=== PATIENT | female | born 2000 | race Caucasian/White ===

== ENCOUNTER 2022-01-08 17:58 | Emergency (ER) | payer MEDICAID, SELFPAY ==
[2022-01-08 18:01] VITALS: BP 109/61; PULSE 75; RESP 20; TEMP 36.5; O2SAT 100
== END 2022-01-08 18:16 | disposition left against medical advice (07) ==
LOC: ANHED 18:34
DX: R22.1 Localized swelling, mass and lump, neck (principal)
CPT/HCPCS: 99199

== ENCOUNTER 2022-05-24 19:48 | Outpatient (RCR) | payer MEDICAID, SELFPAY ==
--- NOTE | 2022-05-24 20:36 | PM.IMHP ---
H&P: HPI History of Present Illness Date/Time: 05/24/22 20:36 Chief Complaint: No movement. Narrative: 22-year-old 1 at 30 weeks gestation presents for no movement for approximately 11 hours. She denies any contractions, loss of fluid, vaginal bleeding. She denies any nausea, vomiting, fever, chills. Ultrasound was performed in Labor and delivery after heart tones could not be appreciated. There was no cardiac activity. The patient was informed of the stillbirth. We discussed options. Review of Systems Review of Systems: All systems reviewed & are unremarkable except as noted in HPI and below Constitutional: Constitutional: Denies chills, Denies fatigue, Denies fever(s) and Denies weakness Eyes: Eyes: Denies blurry vision, Denies change in vision, Denies loss of peripheral vision, Denies loss of vision, Denies other visual disturbances and Denies eye pain ENT: Denies vertigo, Denies dizziness, Denies hearing loss, Denies mouth pain, Denies nasal obstruction, Denies neck mass and Denies neck pain Cardiovascular: Cardiovascular: Denies chest pain, Denies diaphoresis, Denies syncope, Denies leg edema and Denies dyspnea Respiratory: Respiratory: Denies chest congestion, Denies cough, Denies hemoptysis, Denies dyspnea and Denies wheezing Gastrointestinal: Gastrointestinal: Denies abdominal pain, Denies constipation, Denies diarrhea, Denies nausea and Denies vomiting Genitourinary: Genitourinary: Denies hematuria, Denies change in libido, Denies nocturia, Denies genital lesions, Denies flank pain and Denies urinary urgency Musculoskeletal: Musculoskeletal: Denies abnormal gait, Denies back pain, Denies myalgias, Denies arthralgias, Denies joint swelling, Denies muscle weakness and Denies neck pain Integumentary/Breasts: Skin/Breast: Denies swelling, Denies breast pain, Denies breast mass, Denies dry skin, Denies nipple discharge, Denies unusual bruising and Denies jaundice Neurologic: Denies Neuro-related abnormal movements, Denies Abnormal speech present, Denies abnormal gait, Denies behavioral changes, Denies confusion, Denies vertigo, Denies dizziness, Denies syncope, Denies loss of vision, Denies memory loss, Denies convulsions and Denies weakness Psychiatric: Psychiatric: Denies abnormal sleep pattern, Denies behavioral changes, Denies change in libido, Denies confusion, Denies depression, Denies anhedonia and Denies memory loss Endocrine: Endocrine: Reports no additional endocrine complaints, Denies change in libido and Denies fatigue Hematologic/Lymphatic: Hematologic/Lymphatic: Reports no additional hematologic/lymphatic complaints Allergic/Immunologic: Allergic/Immunologic: Reports no additional allergic/immunologic complaints and Denies wheezing Meds Home Medications and Allergies Allergies Allergy/AdvReac Type Severity Reaction Status Date / Time No Known Allergies Allergy Unverified 09/29/16 04:34 Exam Const: General: cooperative, healthy appearing, comfortable and no acute distress; No confusion Orientation/consciousness: oriented to person, oriented to place, oriented to time and No confusion HENMT: Head: normal to inspection Ears: external ears normal Face/Nose/Sinus: Normal external nose present and normal facial exam Face and sinus: normal facial exam Eyes: General: appearance normal, both eyes and all related structures Neck: Neck: normal visual inspection, trachea midline and supple Resp: Auscultation: clear to auscultation bilaterally, no crackles, no rales, no rhonchi and no wheezes Cardio: Rate: regular rate Rhythm: regular rhythm Heart sounds: no click, no murmurs and no rubs GI: GI Palp: No abdominal tenderness, No Soft to palpation, No Tenderness to palpation present (GI) and No Palpable mass present Auscultation: normal bowel sounds Skin: General skin exam: normal color and no rashes or lesions noted Neuro: General: oriented to person, oriented to place, o
--- NOTE | 2022-05-24 22:18 | PC.NURSE ---
PT HAS DECIDED THAT SHE WOULD LIKE TO GO HOME TO PROCESS AND COLLECT HER THINGS BEFORE SHE COMES BACK FOR HER INDUCTION. PT TEARFUL.
== END 2022-05-24 21:00 | disposition home or self-care (01) ==
LOC: ANHOBOP 19:48
PROVIDERS: Visit Provider Obstetrics & Gynecology
DX: O36.8130 Decreased fetal movements, third trimester, not applicable or unspecified (principal); Z3A.30 30 weeks gestation of pregnancy
CPT/HCPCS: 99199

== ENCOUNTER 2022-05-25 09:33 | Inpatient (IN) | payer OTHER, SELFPAY ==
--- OUTSIDE RECORDS SUMMARY | 2022-05-25 09:40 | XMS_ITS ---
:2000 Author Care Team Providers Name Role Phone NEO BURK ANP Primary Care Provider [phone] Allergies Code Code System Name Reaction Severity Status Onset NKDA ? Medications Name Status Start Date Stop Date ? ? amoxicillin 500 mg capsule Completed ? 05/04 TK 1 C PO Q 12 H TAT azithromycin 500 mg tablet Completed ? 02/10 TAKE 2 TABLETS BY MOUTH EVERY DAY ergocalciferol (vitamin D2) 1,250 mcg (50,000 unit) capsule Comp leted ? 02/10/2022 Take 1 capsule every week by oral route. escitalopram 10 mg tablet Completed ? 2021 TAKE 1 TABLET BY MOUTH EVERY DAY ibuprofen 600 mg tablet Completed ? 02/11/20 22 PNV-DHA 27 mg iron-1 mg-300 mg capsule Active ? Not available Take 1 capsule by oral route. Vitamin Active ? Not available Problems Name Status Onset Date Source ? Active 01/22/2022 ? Procedures Date Name Performed by ? 03/06/2022 US, Obstetric, 2Nd or 3Rd Trimester [facility] mackay [address] [place] [address] ([address]) 03/06/2022 US, Obstetric, Transvaginal [facility] [address] [place] [address] ([address]) Results Lab Results Date Name Specimen Result Interpretation Description Value Range Status Address ? 05/02/2022 Hematocrit Low Hct 32.4 % (based on Fin
--- OUTSIDE RECORDS SUMMARY | 2022-05-25 09:40 | XMS_ITS | Encounter Summary ---
:2000 Author Care Team Providers Name Role Phone Donna Hernandez Shakila Primary Care Provider [phone] Reason for Visit None recorded. Assessment and Plan 1. screening ? US, obstetric, 2nd or 3rd trimester ? US, obstetric, transvaginal Discussion Note: None recorded.Patient educational handouts: No information available. Plan of Care Reminders Provider Appointments Ob Routine 05/30/2022 Lucita Rizvi CNM 9:45AM Lab None recorded. ? ? Referral None recorded. ? ? Procedures None recorded. ? ? Surgeries None recorded. ? ? Imaging US, Obstetric, 2Nd or 3Rd 03/06/2022 Mar[facility] codie Trimester ? US, Obstetric, Transvaginal 03/06/2022 Yves french Medications Name Start Date ? ? PNV-DHA 27 mg iron-1 mg-300 mg capsule ? Take 1 capsule by oral route. Vitamin ? Medications Administered None recorded. Vitals None recorded. Results Lab Results None recorded. Allergies Code Code System Name Reaction Severity Onset NKDA ? ? ? Problems Name Status Onset Date Source ? Active 01/22/2022 ? Procedures Date Name Performed by ? 03/06/2022 US, Obstetric, 2Nd or 3Rd Trimester Maricruz mackay [address] [place] [address] (Work Place) 03/06/2022 US, Obstetric, Transvaginal [place] [facility]
--- OUTSIDE RECORDS SUMMARY | 2022-05-25 09:40 | XMS_ITS ---
:2000 Author Care Team Providers Name Role Phone Donna Hernandez Primary Care Provider Unavailable Allergies Notes: glitter( rash) Medications Name Status Start Date Stop Date [...] ibuprofen 600 mg tablet Completed ? 02/11/20 Problems None recorded. Procedures None recorded. Results Lab Results Date Name Specimen Result Interpretation Description Value Range Status Address ? ? Risk Assessment* ? No observation recorded. ? ? ? [facility]: [address] Past Encounters 02/10/2022 Adult Health Examination; ; Anx iety; Depression Screening PALOMO Ding-C: [address] [place], [facility] [address] [address], Ph. Social History Tobacco Smoking Status Never Smoker Vaccine List Notes: pt declined flu shot Plan of Care Patient Instructions INFLUENZA VACCINE Your next one in the fall of 2021 TD/TDAP per OB MAMMOGRAM No screening indica
--- OUTSIDE RECORDS SUMMARY | 2022-05-25 09:40 | XMS_ITS | Encounter Summary ---
:2000 Author Care Team Providers Name Role Phone Donna Hernandez Shakila Primary Care Provider [phone] Reason for Visit OB visit OB 23 [id number] EDC 07/26/2022 LMP 10/24/2021 Assessment and Plan Assessment Note Patient is _23__weeks . Discuss ed plan. 1. Routine care Discussion Note: None recorded.Patient educational handouts: No information available. Plan of Care Reminders Provider Appointments Ob Routine 05/30/2022 9:45AM Lucita tijerina CNM Lab None recorded. ? ? Referral None recorded. ? ? Procedures None recorded. ? ? Surgeries None recorded. ? ? Imaging None recorded. ? ? Medications Name Start Date ? ? PNV-DHA 27 mg iron-1 mg-300 mg capsule ? Take 1 capsule by oral route. Vitamin ? Medications Administered None recorded. Vitals Height Weight BMI Blood Pressure 5 ft 5 in 161 lbs 26.8 kg/m2 110/72 mm[Hg] Results Lab Results None recorded. Allergies Code Code System Name Reaction Severity Onset NKDA ? ? ? Problems Name Status Onset Date Source ? Active 01/22/2022 ? Procedures Date Name Performed by ? 03/06/2022 US, Obstetric, 2Nd or 3Rd [place] [address] (Work [address]) 03/06/2022 US, Obstetric, Transvaginal Melvin
--- OUTSIDE RECORDS SUMMARY | 2022-05-25 09:40 | XMS_ITS | Encounter Summary ---
:2000 Author Care Team Providers Name Role Phone Donna Hernandez Shakila Primary Care Provider [phone] Reason for Visit OB visit OB [id number] EDC 07/26/2022/ lmp 10/24/2021 Assessment and Plan Assessment Note Patient is _27__weeks . Discuss ed plan. 1. Routine care [...] BMI Blood Pressure 5 ft 5 in 169.8 lbs 28.3 kg/m2 101/68 mm[Hg] Results Lab Results None recorded. Allergies Code Code System Name Reaction Severity Onset NKDA ? ? ? Problems Name Status Onset Date Source ? Active 01/22/2022 ? Procedures None recorded. Vaccine List None recorded. Social History Tobacco Smoking Status Unknown If Ever Smoked Do you have difficulty walking or climbing stairs? N What type of diet are you following? REGULAR Are you able to walk? YESWOREST Are you able to care for yourself? Y How much tobacco do you chew? none What is your leve
--- OUTSIDE RECORDS SUMMARY | 2022-05-25 09:40 | XMS_ITS ---
:2000 Author Care Team Providers Name Role Phone Srinivas Paige Primary Care Provider Unavailable Allergies Code Code System Name Reaction Severity Status Onset NKDA ? Notes: coltentter( rash) Medications Name Status Start Date Stop Date ? ? amoxicillin 500 mg capsule Completed ? 05/04 TK 1 C PO Q 12 H TAT ergocalciferol (vitamin D2) 1,250 mcg (50,000 unit) capsule Acti ve ? Not available Take 1 capsule every week by oral route. escitalopram 10 mg tablet Active ? Not av ailable TAKE 1 TABLET BY MOUTH EVERY DAY ibuprofen 600 mg tablet Active ? Not avai lable Problems No Known Problems Procedures Date Name Performed by ? 05/04/2019 XR, Lumbar Spine [facility] ([facility]) [address] [place], [place] [address] (Work [address]) 05/04/2019 XR, Chest [facility] ([facility]) [address], [place] [address] (Work Place) 05/04/2019 US, Echocardiogram [facility] ([facility]) [address], [place] [address] (Work Place) Results Lab Results Date Name Specimen Result Interpretation Description Value Range Status Address ? 05/04/2019 Urinalysis, Reflex ? No observation ? ? ? [facility]
--- OUTSIDE RECORDS SUMMARY | 2022-05-25 09:40 | XMS_ITS ---
:2000 Author Care Team Providers Name Role Phone Enrique Perez Primary Care Provider Unavailable Allergies Code Code System Name Reaction Severity Status Onset NKDA ? Medications Name Status Start Date Stop Date ? ? calcium carbonate 600 mg-vitamin D3 20 mcg (800 unit) tablet Act michell ? Not available Take 1 tablet twice a day by oral route for 30 days. dicyclomine 10 mg capsule Active ? Not av ailable Take 1 capsule 3 times a day by oral route as needed. ergocalciferol (vitamin D2) 1,250 mcg (50,000 unit) Active ? Not available capsule escitalopram 10 mg tablet Active ? Not av ailable Linzess 145 mcg capsule Active ? Not avai lable Take 1 capsule every day by oral route. Lo Loestrin Fe 1 mg-10 mcg (24)/10 mcg (2) tablet Completed ? 01/04/2019 Take 1 tablet every day by oral route. multivitamin tablet Active ? Not availabl e Take 1 tablet every day by oral route. Nexplanon 68 mg subdermal implant Completed ? 01/04/2019 Inject 1 implant by subcutaneous route. NuvaRing 0.12 mg-0.015 mg/24 hr vaginal Unknown ? Not available Insert 1 vaginal ring every month by vaginal route. Xulane 150 mcg-35 mcg/24 hr transdermal patch Completed ? 01/04/2019 UNWRAP AND APPLY 1 PATCH TO SKIN WEEKLY Problems Name Status Onset Date Source ? Irritable Bowel Syndrome Active 01/04/2019 ? Family Planning Surveillance Unknown 01/04/2019 ? Procedures None recorded. Results Lab Results Date Name Specimen Result Interpretation Description Value Range Status Address ?
--- OUTSIDE RECORDS SUMMARY | 2022-05-25 09:40 | XMS_ITS ---
:2000 Author Care Team Providers Name Role Phone Workman, Jesus Primary Care Provider Unavailable Allergies Code Code System Name Reaction Severity Status Onset NKDA ? Medications Name Status Start Date Stop Date ? ? meloxicam 15 mg tablet Active ? Not avail able Take 1 tablet every day by oral route. Problems None recorded. Procedures Date Name Performed by ? 05/16/2019 XR, Lumbar Spine In-Office Order Internal Use Only DO Not Attach Compendium DO Not Attach Compendium Do Not Delete/merge [id number] Results Lab Results Date Name Specimen Result Interpretation Description Value Range Status Address ? ? XR, Lumbar Spine ? No observation ? ? ? In-Office Order: recorded. Interna l Use Only DO Not Attach Compendium DO Not Att ach Compendium , Do Not Delete/[place] ge Past Encounters None recorded. Social History Tobacco Smoking Status Never Smoker Vaccine List None recorded. Plan of Care Reminders Provider Appointments None recorded. ? ? Lab None recorded. ? ? Referral None recorded. ? ? Procedures None recorded. ? ? Surgeries None recorded. ? ? Imaging None recorded. ? ? Vitals Height Weight BMI 5 ft 3 in 162 lbs 28.7 kg/m2
--- OUTSIDE RECORDS SUMMARY | 2022-05-25 09:40 | XMS_ITS | Encounter Summary ---
:2000 Author Care Team Providers Name Role Phone Donna Hernandez Shakila Primary Care Provider [phone] Reason for Visit OB visit Assessment and Plan Assessment Note Patient is ___weeks . Discussed plan. 1. Routine care Discussion Note: None recorded.Patient educational handouts: No information available. Plan of Care Reminders Provider Appointments Ob Routine 05/30/2022 9:45AM Lcuita tijerina CNM Lab None recorded. ? ? Referral None recorded. ? ? Procedures None recorded. ? ? Surgeries None recorded. ? ? Imaging None recorded. ? ? Medications Name Start Date ? ? PNV-DHA 27 mg iron-1 mg-300 mg capsule ? Take 1 capsule by oral route. Vitamin ? Medications Administered None recorded. Vitals Height Weight BMI Blood Pressure 5 ft 5 in 155 lbs 25.8 kg/m2 104/63 mm[Hg] Results Lab Results None recorded. Allergies Code Code System Name Reaction Severity Onset NKDA ? ? ? Problems Name Status Onset Date Source ? Active 01/22/2022 ? Procedures Date Name Performed by ? 03/06/2022 US, Obstetric, 2Nd or 3Rd Trimester [place] [address] (Work [address]) 03/06/2022 US, Obstetric, Transvaginal [facility]
--- OUTSIDE RECORDS SUMMARY | 2022-05-25 09:40 | XMS_ITS | Encounter Summary ---
:2000 Author Care Team Providers Name Role Phone Donna Hernandez Shakila Primary Care Provider [phone] Reason for Visit OB visit OB [id number] EDC 07/26/2022 LMP 10/24/2021 Assessment and Plan Assessment Note Patient is __29_weeks . Discuss ed plan. 1. Routine care [...] BMI Blood Pressure 5 ft 5 in 173 lbs 28.8 kg/m2 106/69 mm[Hg] Results Lab Results None recorded. Allergies [...] do you chew? none What is your level
--- NOTE | 2022-05-25 10:44 | WPDHPUPDATE1 ---
History and Physical Update Update Date/Time: 05/25/22 10:44 22-year-old 1 at 31 weeks gestation with stillbirth. We have agreed to proceed with induction of labor today. Ultrasound revealed no cardiac activity and a vertex position of the . We agreed to start Cytotec. 50 mcg every 4 hours initially. History and Physical has been reviewed, including an updated exam of the patient. There are NO changes in the patient's condition. Risks, benefits, and alternatives have been discussed and questions answered. Patient agrees to proceed with procedure.
[2022-05-25 11:23] VITALS: BMI 28.2
--- NOTE | 2022-05-25 11:50 | PC.NURSE ---
104Herb- Dr. Thomason at bedside. Ultrasound performed. Cervical exam performed.
[2022-05-25 11:57] LABS: Basophils Percent Auto 0.2 % (0.2-1.2); Eosinophils Absolute Auto 0.1 K/mm3 (0-0.3); Eosinophils Percent Auto 0.7 % (0-4.4); Hematocrit 34.1 % (37.0-47.0); Hemoglobin 11.2 g/dL (12.0-15.0); Immature Granulocyte Absolute 0.06 K/mm3 (0.00-0.031); Immature Granulocyte Percent A 0.6 % (0-0.5); Lymphocytes Absolute Auto 1.44 K/mm3 (0.9-3.2); Lymphocytes Percent Auto 14.3 % (18.3-44.2); Mean Corpuscular HGB Conc 32.8 g/dl (32-36); Mean Corpuscular Hemoglobin 28.6 pg (26-34); Mean Corpuscular Volume 87.2 fl (80-100); Mean Platelet Volume 10.7 fl (7.4-10.4); Monocytes Percent Auto 10.1 % (2.6-8.5); Neutrophils Absolute Auto 7.4 K/mm3 (1.3-6.7); Neutrophils Percent Auto 74.1 % (45.5-73.1); Platelet Count Result 319 k/mm3 (150-375); Red Blood Count 3.91 M/mm3 (4.2-5.4); Red Cell Distribution Width 14.2 % (11.5-14.5)
[2022-05-25] MEDS: ACETAMINOPHEN 500 MG TABLET 1000 MG PO ×2 (12:30→20:11)
[2022-05-25 13:20] LABS: Amphetamine Screen Urine Negative (Negative); Barbiturate Screen Urine Negative (Negative); Benzodiazepines Screen Urine Negative (Negative); Cannabinoid Screen Urine Negative (Negative); Cocaine Screen Urine Negative (Negative); Methadone Screen Urine Negative (Negative); Opiate Screen Urine Negative (Negative); Phencyclidine Screen Urine Negative (Negative)
[2022-05-25] MEDS: miSOPROStol 50 MCG TABLET VAGINAL ×3 (13:43→21:53)
[2022-05-25 13:48] VITALS: BP 119/66; PULSE 94
[2022-05-25 14:00] VITALS: BP 129/74; PULSE 87
[2022-05-25 14:30] VITALS: BP 121/63; PULSE 94; TEMP 36.6
[2022-05-25 17:55] VITALS: BP 120/74; PULSE 85; TEMP 36.7
[2022-05-25 21:52] VITALS: BP 115/54; PULSE 88; TEMP 36.6
[2022-05-26] VITALS (19 sets, daily range): BP systolic 103–120; BP diastolic 54–73; PULSE 69–100; RESP 14–16; TEMP 36.1–37; O2SAT 97–99
[2022-05-26] MEDS: miSOPROStol 50 MCG TABLET VAGINAL (01:51)
[2022-05-26] MEDS: ACETAMINOPHEN 500 MG TABLET 1000 MG PO (03:01)
[2022-05-26] MEDS: miSOPROStol 200 MCG TABLET PO (06:31)
[2022-05-26 07:13] LABS: Rapid Plasma Reagin Non-Reactive (NonReactive)
[2022-05-26] MEDS: IBUPROFEN 600 MG TABLET PO (07:34)
[2022-05-26] MEDS: OXYTOCIN 30 UNITS/NS 500 ML 30 UNITS/500 ML BAG 125 UNITS IV CONT (10:42)
--- NOTE | 2022-05-26 10:51 | PM.OBPRVD ---
OB - Delivery Note Procedure Procedure: Events: Other (Stillbirth) Induction method: AROM and Other (cytotec) Delivery monitor: None Route of delivery: Laceration Description: None Specimen: Yes Quantitative Blood Loss (ml): 25 Disposition: Floor Baby Date of : 05/26/22 Weeks of gestation at delivery: 31 gender: Female presentation: vertex Placenta delivery description: Spontaneous score one minute: 0 score five minutes: 0
--- NOTE | 2022-05-26 12:05 | PM.OBPRVD ---
OB - Delivery Note Procedure Events: Other (Stillbirth) Induction method: AROM and Per Misoprostol Protocol Delivery monitor: None Route of delivery: Episiotomy description: None Laceration Description: None Quantitative Blood Loss (ml): 25 Disposition: Floor [place] Baby Date of : 05/26/22 Weeks of gestation at delivery: 31 Infant gender: Female presentation: vertex Placenta delivery description: Spontaneous score one minute: 0 score five minutes: 0
[2022-05-26] MEDS: ACETAMINOPHEN 325 MG TABLET 650 MG PO (19:55)
--- NOTE | 2022-05-26 20:34 | PC.NURSE ---
2033 post assessment the patients's fundus was non palatable. Patient stated bleeding was like a heavy period with no clots. Patient is able to void independently. Patient was educated to inform nurse if she is going through more than 1 pad in an hour or if she has any medium/large clots.
[2022-05-27 05:07] LABS: Hematocrit 39.5 % (37.0-47.0); Hemoglobin 11.2 g/dL (12.0-15.0)
[2022-05-27 08:00] VITALS: TEMP 36.6
[2022-05-27 08:48] VITALS: BP 116/68; PULSE 71
--- NOTE | 2022-05-27 09:46 | PM.OBPNVD ---
OB - PN: Subj Subjective Date/time seen: 05/27/22 09:46 Patient comments: no complaints, pain well controlled, incisional pain, tolerating diet and flatus present OB - PN: Obj Data Labs CBC & Chem 7: 05/27/22 04:59 Labs: Laboratory Results - last 24 hr 05/27/22 04:59 Hgb 11.2 L Hct 39.5 OB - PN A/P Plan day: 1 Plan: routine care Comments: 31 week stillbirth, day 1, reasonable affect. No Physiologic problems, routine care, discharge Time Spent With Patient Time: Total time spent is greater than 50% in coordination of care (as documented) at patient's floor/unit and/or counseling patient: Exam Const: General: comfortable, no acute distress and alert Resp: Effort & Inspection: normal respiratory effort Auscultation: no crackles, no rales and no rhonchi Cardio: Rate: regular rate Heart sounds: no click, no murmurs and no rubs GI: Inspection: non-distended GI Palp: No Tenderness to palpation present (GI) Auscultation: normal bowel sounds Other: Incision - CDI Extrem: General: normal to inspection, no pedal edema and no calf tenderness
--- NOTE | 2022-05-27 09:48 | PM.OBDSVD ---
DS: Admitting Diagnosis Discharge Date 05/27/22 Admitting Diagnosis stillbirth -31 weeks DS: Discharge Diagnosis Discharge Diagnosis (1) Stillbirth with antepartum : Code(s): Z37.1 - Single stillbirth Status: Acute OB - DS: Summary Hospital Course Hospital Course: presented with 32 week stillbirth, delivered OB Procedures : Ultrasound OB Procedures Intrapartum: Spontaneous Vag Delivery OB Procedures: : None Time Spent with Patient Time attestation: Total time spent providing and/or coordinating discharge services: DS: Data Data Completed and Pending Pending studies at discharge: Pending at discharge 05/26/22 10:41 Surgical [PTH] Routine Labs on day of discharge: Labs from last 24 hours 05/27/22 04:59 Hgb 11.2 L Hct 39.5 Discharge Plan Discharge Discharging Clinician: Marc Thomason Patient Disposition: Home, Self-Care Activity: pelvic rest Diet: regular Patient Instructions: Antibiotic Form Stand Alone Forms: General Discharge Information Follow-up/Referrals: Marc Thomason MD [Physician] - Date of admission: 05/25/22 09:33 Primary Care Provider: UNKNOWN,DOCTOR Admitting Provider: Marc Thomason Attending physician on admission: Marc Thomason Condition: Stable
[2022-06-02 07:54] LABS: Anti Cardio Antibody IgM <2.0; Anti Cardiolipin Antibody IgA <2.0
[2022-06-02 07:55] LABS: Anti Cardiolipin Antibody IgG <2.0
== END 2022-05-27 18:05 | disposition home or self-care (01) | DRG 560 ==
PROVIDERS: Admitting Provider Obstetrics & Gynecology; Visit Provider Obstetrics & Gynecology
DX: O36.4XX0 Maternal care for intrauterine death, not applicable or unspecified (principal); Z37.1 Single stillbirth; O69.81X0 Labor and delivery complicated by cord around neck, without compression, not applicable or unspecified; Z3A.31 31 weeks gestation of pregnancy
CPT/HCPCS: 36415; 80307; 85014; 85018; 85025; 85460; 86146; 86147; 86592; 86644; 86645; 86850; 86900; 86901; 88307; A9270; J2590

== ENCOUNTER 2022-07-08 20:08 | Emergency (ER) | payer OTHER, SELFPAY ==
[2022-07-08 20:10] VITALS: BP 122/54; PULSE 66; RESP 16; TEMP 36.6; O2SAT 100
[2022-07-08 20:31] LABS: Basophils Percent Auto 0.2 % (0.2-1.2); Eosinophils Absolute Auto 0.2 K/mm3 (0-0.3); Eosinophils Percent Auto 1.9 % (0-4.4); Hemoglobin 12.5 g/dL (12.0-15.0); Immature Granulocyte Absolute 0.03 K/mm3 (0.00-0.031); Immature Granulocyte Percent A 0.3 % (0-0.5); Lymphocytes Absolute Auto 3.55 K/mm3 (0.9-3.2); Lymphocytes Percent Auto 36.7 % (18.3-44.2); Mean Corpuscular HGB Conc 32.9 g/dl (32-36); Mean Corpuscular Hemoglobin 28.9 pg (26-34); Mean Corpuscular Volume 87.8 fl (80-100); Mean Platelet Volume 10.7 fl (7.4-10.4); Monocytes Absolute Auto 0.6 K/mm3 (0.1-0.6); Monocytes Percent Auto 6.2 % (2.6-8.5); Neutrophils Absolute Auto 5.3 K/mm3 (1.3-6.7); Neutrophils Percent Auto 54.7 % (45.5-73.1); Platelet Count Result 327 k/mm3 (150-375); Red Blood Count 4.33 M/mm3 (4.2-5.4); Red Cell Distribution Width 13.3 % (11.5-14.5); White Blood Count 9.7 K/mm3 (4.5-10.0)
[2022-07-08 20:44] LABS: Add Urine Microscopic? YES; Appearance Urine Clear (Clear); Bilirubin Urine Negative (Negative); Blood Urine 3+ (Negative); Color Urine Light Yellow (Yellow); Glucose Urine UA Negative (Negative); Ketones Urine Negative (Negative); Leukocyte Esterase Ur Negative LEU/UL (Negative); Nitrate Urine Negative (Negative); Protein Urine Negative (Negative); Specific Grav Ur 1.025 (1.001-1.035); Urobilinogen Urine 0.2 mg/dL (<2.0)
[2022-07-08 20:59] LABS: Beta HCG Quantitative < 2.39 mIU/ML
[2022-07-08 21:12] LABS: RBC Urine 21-50 /hpf (0-2); Squamous Epithelial Cell Urine Rare /hpf (Few)
[2022-07-08 21:27] LABS: Alanine Aminotransferase 25 U/L (6-35); Albumin Level 4.1 g/dL (3.5-5.1); Alkaline Phosphatase 51 U/L (38-126); Anion Gap 5 mmol/L (8-16); Aspartate Amino Transferase 25 U/L (14-36); Bilirubin,Total 0.2 mg/dL (0.2-1.3); Blood Urea Nitrogen 14 mg/dL (7-17); Calcium 8.4 mg/dL (8.4-10.2); Carbon Dioxide 29 mmol/L (22-30); Chloride 104 mmol/L (98-107); Estimated CRCL calculation 86 ml/min; Estimated Glomerular Filt Rate > 60; Glucose 93 mg/dL (65-110); Potassium 4.2 mmol/L (3.4-5.0); Sodium 138 mmol/L (137-145)
--- NOTE | 2022-07-08 22:45 | ED.FEMALEGU ---
HPI - Female Genitourinary General Chief complaint: Vaginal Bleeding Stated complaint: vaginal bleeding, 05/26/22 Time Seen by Provider: 07/08/22 22:28 Source: patient Mode of arrival: ambulatory Limitations: no limitations History of Present Illness HPI Narrative: This is a 22 year old female that presents to the ER for heavy vaginal bleeding. Reports she gave to a stillborn at 31 weeks on 05/26. This is her first cycle since. Reports she started bleeding about 6 days ago and feels like it has been heavy. Reports intermittent pelvic cramping. Denies fever, dysuria. Related Data Allergies Allergy/AdvReac Type Severity Reaction Status Date / Time No Known Allergies Allergy Verified 07/08/22 20:14 Review of Systems Review of Systems: CONSTITUTIONAL: Denies fever GASTROINTESTINAL: Denies abdominal pain, nausea, vomiting GENITOURINARY: Denies dysuria All systems reviewed & are unremarkable except as noted in HPI and below PMFSH Past Medical History Medical History (Updated 07/08/22 @ 23:12 by Maddison Aguayo PA-C) No active medical problems Social History Social History Smoking status: Never smoker Substance use: never Spiritual care concerns: No Exam Narrative: GENERAL: Well-appearing, well-nourished, and in no acute distress. HEAD: Normocephalic, atraumatic. EYES: EOMI. CHEST: Clear to auscultation. No respiratory distress. No wheezes rales or rhonchi HEART: Regular rate and rhythm. No murmur heard. Normal peripheral pulses. EXTREMITIES: Normal range of motion. No edema. SKIN: Warm, dry, no rash. NEURO: No focal deficits. Alert and oriented x3. PSYCH: Normal mood and affect FEMALE GENITAL: Normal external genitalia. No concerning amount of bleeding noted from the vaginal vault. Patient refused speculum exam Course Vital Signs Vital signs: Vital Signs Temperature 97.9 F 07/08/22 20:10 Pulse Rate 66 07/08/22 20:10 Respiratory Rate 16 07/08/22 20:10 Blood Pressure 122/54 L 07/08/22 20:10 Pulse Oximetry 100 07/08/22 20:10 Oxygen Delivery Room Air 07/08/22 20:10 Temperature 97.9 F 07/08/22 20:10 Pulse Rate 66 07/08/22 20:10 Respiratory Rate 16 07/08/22 20:10 Blood Pressure 122/54 L 07/08/22 20:10 Pulse Oximetry 100 07/08/22 20:10 Oxygen Delivery Room Air 07/08/22 20:10 MDM - Female Genitourinary MDM Narrative Medical decision making narrative: Patient presents to the ER for heavy vaginal bleeding. Reports she gave to a stillborn at 31 weeks on 05/26. This is her first cycle since. Reports she started bleeding about 6 days ago and feels like it has been heavy. Her vitals are stable. I did not concerning amount of bleeding on exam. Her hemoglobin is normal. test is negative. UA without evidence of infection. Patient and family updated on case findings. She is instructed to continue to follow-up with her [employer]. She was given warnings to return to the ER Lab Data Attestation: I reviewed the patient's lab results. 07/08/22 20:22 07/08/22 21:11 Labs: Lab Results 07/08/22 07/08/22 07/08/22 Range/Units 20:22 20:22 20:22 WBC 9.7 (4.5-10.0) K/mm3 RBC 4.33 (4.2-5.4) M/mm3 Hgb 12.5 (12.0-15.0) g/dL Hct 38.0 (37.0-47.0) % MCV 87.8 (80-100) fl MCH 28.9 (26-34) pg MCHC 32.9 (32-36) g/dl RDW 13.3 (11.5-14.5) % Plt Count 327 (150-375) k/mm3 MPV 10.7 H (7.4-10.4) fl Immature Gran % (Auto) 0.3 (0-0.5) % Neut % (Auto) 54.7 (45.5-73.1) % Lymph % (Auto) 36.7 (18.3-44.2) % [place] % (Auto) 6.2 (2.6-8.5) % Eos % (Auto) 1.9 (0-4.4) % Baso % (Auto) 0.2 (0.2-1.2) % Lymph # (Auto) 3.55 H (0.9-3.2) K/mm3 [place] # (Auto) 0.6 (0.1-0.6) K/mm3 Eos # (Auto) 0.2 (0-0.3) K/mm3 Baso # (Auto) 0.0 (0.0-0.1) K/mm3 Abs Immat Gran (auto) 0.03 (0.00-0.031) K/mm3 Absolute Neuts (auto) 5.3 (1.3-6.7) K/mm3 Absolute
[2022-07-08 23:32] VITALS: BP 124/63; PULSE 67; RESP 18; O2SAT 99
== END 2022-07-08 23:32 | disposition home or self-care (01) ==
LOC: ANHED 23:17
PROVIDERS: Emergency Medicine; Emergency Provider Physician Assistant; PCP Nurse Practitioner Family
DX: N93.8 Other specified abnormal uterine and vaginal bleeding (principal)
CPT/HCPCS: 36415; 80053; 81001; 81025; 84702; 85025; 99283

== ENCOUNTER 2023-05-07 13:31 | Outpatient (CLI) | payer OTHER, SELFPAY | END 2023-05-07 13:32 | disposition home or self-care (01) | LOC: ANHLAB 13:35 | PROVIDERS: PCP Nurse Practitioner Family; Visit Provider Obstetrics & Gynecology | DX: N91.2 Amenorrhea, unspecified (principal) | CPT/HCPCS: 36415; 84702 ==

== ENCOUNTER 2023-05-09 07:01 | Outpatient (CLI) | payer OTHER, SELFPAY | END 2023-05-09 07:02 | disposition home or self-care (01) | LOC: ANHLAB 07:04 | PROVIDERS: PCP Nurse Practitioner Family; Visit Provider Obstetrics & Gynecology | DX: N91.2 Amenorrhea, unspecified (principal) | CPT/HCPCS: 36415; 84702 ==

== ENCOUNTER 2023-12-16 04:52 | Inpatient (IN) | payer OTHER, SELFPAY ==
[2023-12-16] VITALS (67 sets, daily range): BP systolic 65–133; BP diastolic 44–92; PULSE 79–116; TEMP 36.4–37.6; O2SAT 95–100; BMI 33.0
--- NOTE | 2023-12-16 05:11 | LDADM ---
This patient, Prasad Herron, was admitted to Labor/Delivery/Recovery 104 on 12/16/23 at 04:52. Plans for labor, pain management and were discussed with patient. Patient/family oriented to hospital policies and general routines including ID bracelet, bed and alarms, visiting hours, pain management, procedures, bathroom and other care routines, personal items, smoking policy, room service/diet and guest tray routines, infant security routines, and visiting hours. Patient/Family are encouraged to report perceived risks to care and to ask questions if they do not understand what they are told or what they should do. See OBIX for further documentation.
[2023-12-16 05:57] LABS: Basophils Percent Auto 0.2 % (0.2-1.2); Eosinophils Absolute Auto 0.1 K/mm3 (0-0.3); Eosinophils Percent Auto 1.2 % (0-4.4); Hematocrit 35.2 % (37.0-47.0); Hemoglobin 11.5 g/dL (12.0-15.0); Immature Granulocyte Absolute 0.05 K/mm3 (0.00-0.031); Immature Granulocyte Percent A 0.5 % (0-0.5); Lymphocytes Absolute Auto 2.76 K/mm3 (0.9-3.2); Lymphocytes Percent Auto 25.1 % (18.3-44.2); Mean Corpuscular HGB Conc 32.7 g/dl (32-36); Mean Corpuscular Volume 88.7 fl (80-100); Mean Platelet Volume 10.9 fl (7.4-10.4); Monocytes Absolute Auto 0.7 K/mm3 (0.1-0.6); Monocytes Percent Auto 6.6 % (2.6-8.5); Neutrophils Absolute Auto 7.3 K/mm3 (1.3-6.7); Neutrophils Percent Auto 66.4 % (45.5-73.1); Platelet Count Result 303 k/mm3 (150-375); Red Blood Count 3.97 M/mm3 (4.2-5.4); Red Cell Distribution Width 14.5 % (11.5-14.5)
[2023-12-16] MEDS: miSOPROStol 25 MCG TABLET 50 MCG BY MOUTH (06:14)
[2023-12-16 06:46] LABS: HIV 1/2 Ab P24 Ag Result Negative (Negative)
[2023-12-16] MEDS: OXYTOCIN 30 UNITS/NS 500 ML 30 UNITS/500 ML BAG IV CONT (10:39)
[2023-12-16] MEDS: LACTATED RINGERS 1,000 ML 125 ML IV CONT ×2 (10:39→17:11)
--- NOTE | 2023-12-16 13:29 | WPDHPUPDATE1 ---
History and Physical Update Update Date/Time: 12/16/23 13:29 23-year-old multiparous female at 37 weeks gestation and has a history of 31 week stillbirth. She agreed to induction of labor at 37 weeks. Induction was initiated with Cytotec. One dose of Cytotec was used and thereafter Pitocin was started. Artificial rupture membranes was performed and intrauterine pressure catheter was placed. The heart tones are reassuring. She is priti regularly. To resume expectant management. History and Physical has been reviewed, including an updated exam of the patient. There are NO changes in the patient's condition. Risks, benefits, and alternatives have been discussed and questions answered. Patient agrees to proceed with procedure.
[2023-12-16 16:23] LABS: Rapid Plasma Reagin Non-Reactive (NonReactive)
--- NOTE | 2023-12-16 16:43 | PM.OBPNVD ---
OB - PN: Subj Subjective Date/time seen: 12/16/23 16:43 Interval history: The patient seen, small blood periodically. Reassuring heart tones throughout, occasional blood in the IUPC, small. OB - PN: Obj Data Labs 12/16/23 05:06 Labs: Laboratory Results - last 24 hr 12/16/23 12/16/23 05:06 06:54 WBC 11.0 H RBC 3.97 L Hgb 11.5 L Hct 35.2 L MCV 88.7 MCH 29.0 MCHC 32.7 RDW 14.5 Plt Count 303 MPV 10.9 H Immature Gran % (Auto) 0.5 Neut % (Auto) 66.4 Lymph % (Auto) 25.1 [place] % (Auto) 6.6 Eos % (Auto) 1.2 Baso % (Auto) 0.2 Lymph # (Auto) 2.76 [place] # (Auto) 0.7 H Eos # (Auto) 0.1 Baso # (Auto) 0.0 Abs Immat Gran (auto) 0.05 H Absolute Neuts (auto) 7.3 H Absolute Nucleated RBC 0.000 Nucleated RBC % 0.0 RPR Non-reactive HIV 1&2 Ab/P24 Ag 4thGn Negative Blood Type A Positive Antibody Screen Negative OB - PN A/P Time Spent With Patient Time: Total time spent is greater than 50% in coordination of care (as documented) at patient's floor/unit and/or counseling patient:
--- NOTE | 2023-12-16 17:08 | WPDANESEPPF ---
Anes - Initial Pre Proc Eval Procedure: labor epidural Date/Time: 12/16/23 17:08 Surgeon: Martinez Thomason MD Pre Op Diagnosis: labor pain Pre Op Diagnosis: IOL Patient Data Age: 23 Gender: F Height: 1.65 m Weight: 90 kg Last Vital Signs Temp 36.8 C 12/16/23 14:26 Pulse 104 H 12/16/23 16:30 BP 97/54 L 12/16/23 16:30 Pulse Ox 98 12/16/23 16:44 Allergies Allergy/AdvReac Type Severity Reaction Status Date / Time No Known Allergies Allergy Verified 12/09/23 13:28 Home Medications Medication Instructions Recorded Confirmed Type ferrous sulfate 325 mg (65 mg 325 mg PO DAILY 12/09/23 12/09/23 History iron) tablet vits no.126-ferrous fum 1 tablet PO DAILY 12/09/23 12/09/23 History 28 mg iron-folic acid 800 mcg tablet (Classic ) Laboratory Tests 12/16/23 12/16/23 05:06 06:54 WBC 11.0 H K/mm3 (4.5-10.0) RBC 3.97 L M/mm3 (4.2-5.4) Hgb 11.5 L g/dL (12.0-15.0) Hct 35.2 L % (37.0-47.0) MCV 88.7 fl (80-100) MCH 29.0 pg (26-34) MCHC 32.7 g/dl (32-36) RDW 14.5 % (11.5-14.5) Plt Count 303 k/mm3 (150-375) MPV 10.9 H fl (7.4-10.4) Immature Gran % (Auto) 0.5 % (0-0.5) Neut % (Auto) 66.4 % (45.5-73.1) Lymph % (Auto) 25.1 % (18.3-44.2) [place] % (Auto) 6.6 % (2.6-8.5) Eos % (Auto) 1.2 % (0-4.4) Baso % (Auto) 0.2 % (0.2-1.2) Lymph # (Auto) 2.76 K/mm3 (0.9-3.2) [place] # (Auto) 0.7 H K/mm3 (0.1-0.6) Eos # (Auto) 0.1 K/mm3 (0-0.3) Baso # (Auto) 0.0 K/mm3 (0.0-0.1) Abs Immat Gran (auto) 0.05 H K/mm3 (0.00-0.031) Absolute Neuts (auto) 7.3 H K/mm3 (1.3-6.7) Absolute Nucleated RBC 0.000 K/mm3 (0.0-0.012) Nucleated RBC % 0.0 % (0.0-0.2) RPR Non-reactive (NonReactive) HIV 1&2 Ab/P24 Ag 4thGn Negative (Negative) Blood Type A Positive Antibody Screen Negative Patient hx anesthesia problems: none Family hx anesthesia problems: none Results Review: All pre-operative results and documents have been reviewed as part of the pre-operative evaluation. [facility] Past Medical History Medical History (Updated 07/09/22 @ 00:00 by Holden Bone) No active medical problems Family History Family History (Updated 12/09/23 @ 13:39 by Katie Valladares RN) Grandparent Pacemaker Grandparent Schizophrenia Grandparent Dementia Social History Social History Smoking status: Former smoker Tobacco type: e-cigarettes/vaping Smoking end date: 02/14/23 Substance use: never Do You Feel Safe in your Home?: Yes Lack of Transportation: No Lack of Food: Never True Current Housing: I Have Housing Concerned About Future Housing: No Difficulty Paying Gas/Electric Bills: No Difficulty Paying for Meds: No Currently Unemployed: No Education: High School Diploma/GED Difficulty w/ Childcare or Family Care: No Spiritual care concerns: No Anes - Eval Final PreProcedure Day of Procedure 12/16/23 17:08 Patient weight: obese ASA classification: II Anesthetic plan: proceed Anesthesia type and monitoring: regional epidural and standard monitoring Results Review: All pre-operative results and documents have been reviewed as part of the pre-operative evaluation. Informed Consent: The patient's anesthetic plan and its attendant risks and benefits were discussed with the patient/family/POA. Questions were solicited and answers provided to the satisfaction of the patient/family/POA.
--- NOTE | 2023-12-16 18:04 | P.PNAN_ITS ---
Anes - Prog Note Post-Op Date/Time: 12/16/23 18:04 Vital Signs: Last Vital Signs Temp 36.8 C 12/16/23 14:26 Pulse 90 12/16/23 18:00 BP 116/59 L 12/16/23 18:00 Pulse Ox 99 12/16/23 17:54 Pain Score (VAS): 0 I/O: Intake & Output 12/16/23 12/16/23 12/16/23 07:59 15:59 23:59 Intake Total 816.7 Balance 816.7 Laboratory Tests 12/16/23 05:06 12/16/23 12/16/23 05:06 06:54 WBC 11.0 H RBC 3.97 L Hgb 11.5 L Hct 35.2 L MCV 88.7 MCH 29.0 MCHC 32.7 RDW 14.5 Plt Count 303 MPV 10.9 H Immature Gran % (Auto) 0.5 Neut % (Auto) 66.4 Lymph % (Auto) 25.1 [place] % (Auto) 6.6 Eos % (Auto) 1.2 Baso % (Auto) 0.2 Lymph # (Auto) 2.76 [place] # (Auto) 0.7 H Eos # (Auto) 0.1 Baso # (Auto) 0.0 Abs Immat Gran (auto) 0.05 H Absolute Neuts (auto) 7.3 H Absolute Nucleated RBC 0.000 Nucleated RBC % 0.0 RPR Non-reactive HIV 1&2 Ab/P24 Ag 4thGn Negative Blood Type A Positive Antibody Screen Negative Patient Feedback: Patient satisfied with anesthetic care. Other Findings: Attempted epidural in 3 locations with no success. Patient was worried about her scoliosis however it did not appear that severe on appearance. However, placement was very difficult. Warned patient about potential increased risk of PDPH due to now unknown severity and structure of spine, as well as the possibility that PDPH may be unresolved due to difficulty of initial placement. After this warning patient decided to go without epidural.
[2023-12-16] MEDS: fentaNYL CITRATE INJ (*CRX) 100 MCG/2 ML VIAL 50 MCG IV PUSH (18:33)
[2023-12-16] MEDS: OXYTOCIN 30 UNITS/NS 500 ML 30 UNITS/500 ML BAG 999 UNITS IV CONT (21:18)
--- NOTE | 2023-12-16 21:34 | PM.OBPRVD ---
OB - Vaginal Delivery Note Procedure Delivery date: 12/16/23 Induction method: AROM, Per Misoprostol Protocol and Per Pitocin Protocol Delivery monitor: External FHT and Internal Uterine Route of delivery: Episiotomy description: None Laceration Description: Perineal - 2nd Degree Delivery repair: vicryl Specimen: No Anesthesia type: None Disposition: PACU Complications: No immediate complications Baby Date of : 12/16/23 Time of : 21:14 Weeks of gestation at delivery: 37
[2023-12-16] MEDS: IBUPROFEN 600 MG TABLET PO (23:17)
[2023-12-16] MEDS: ACETAMINOPHEN 325 MG TABLET 650 MG PO (23:17)
[2023-12-17] MEDS: BENZOCAINE 20% AER SPR (*SP) 56 GM CAN 1 SPRAY TOPICAL (03:12)
[2023-12-17] MEDS: WITCH HAZEL 40 PADS 1 PAD TOPICAL (03:12)
[2023-12-17 04:40] LABS: Hematocrit 33.8 % (37.0-47.0); Hemoglobin 11.1 g/dL (12.0-15.0)
[2023-12-17] MEDS: IBUPROFEN 600 MG TABLET PO ×3 (05:25→20:03)
[2023-12-17] MEDS: ACETAMINOPHEN 325 MG TABLET 650 MG PO ×3 (05:25→20:04)
--- NOTE | 2023-12-17 07:46 | PM.OBPNVD ---
OB - PN: Subj Subjective Date/time seen: 12/17/23 07:46 Interval history: The patient seen, small blood periodically. Reassuring heart tones throughout, occasional blood in the IUPC, small. OB - PN: Obj Data Labs 12/17/23 04:35 Labs: Laboratory Results - last 24 hr 12/16/23 12/16/23 12/17/23 05:06 06:54 04:35 Hgb 11.1 L Hct 33.8 L RPR Non-reactive Blood Type A Positive Antibody Screen Negative OB - PN A/P Time Spent With Patient Time: Total time spent is greater than 50% in coordination of care (as documented) at patient's floor/unit and/or counseling patient:
--- NOTE | 2023-12-17 07:49 | PM.OBPNVD ---
OB - PN: Subj Subjective Date/time seen: 12/17/23 07:49 Interval history: The patient seen, small blood periodically. Reassuring heart tones throughout, occasional blood in the IUPC, small. Patient comments: no complaints, pain well controlled, incisional pain, tolerating diet and flatus present OB - PN: Obj Data Labs 12/17/23 04:35 Labs: Laboratory Results - last 24 hr 12/16/23 12/16/23 12/17/23 05:06 06:54 04:35 Hgb 11.1 L Hct 33.8 L RPR Non-reactive Blood Type A Positive Antibody Screen Negative OB - PN A/P Plan day: 1 Plan: routine care Comments: No problems, routine care Time Spent With Patient Time: Total time spent is greater than 50% in coordination of care (as documented) at patient's floor/unit and/or counseling patient: Exam Const: General: comfortable, no acute distress and alert Resp: Effort & Inspection: normal respiratory effort Auscultation: no crackles, no rales and no rhonchi Cardio: Rate: regular rate Heart sounds: no click, no murmurs and no rubs GI: Inspection: non-distended GI Palp: No Tenderness to palpation present (GI) Auscultation: normal bowel sounds Other: Incision - CDI Extrem: General: normal to inspection, no pedal edema and no calf tenderness
[2023-12-17 08:15] VITALS: BP 120/60; PULSE 80; RESP 16; TEMP 36.4; O2SAT 100
[2023-12-17] MEDS: MULTIVIT/MIN/PREN/FOL AC/IRON TABLET 1 TAB PO (08:25)
[2023-12-17 13:00] VITALS: BP 120/72; PULSE 87; RESP 16; TEMP 36.6; O2SAT 100
--- NOTE | 2023-12-17 14:25 | PC.NURSE ---
Report received this morning that mother has decided not to breastfeed and to pump for EBM to feed her infant. is being formula supplemented.
[2023-12-17 20:30] VITALS: BP 115/70; PULSE 73; RESP 16; TEMP 36.8; O2SAT 100
[2023-12-18] MEDS: ACETAMINOPHEN 325 MG TABLET 650 MG PO ×2 (02:59→08:39)
[2023-12-18] MEDS: IBUPROFEN 600 MG TABLET PO ×2 (02:59→08:40)
[2023-12-18 08:00] VITALS: BP 115/67; PULSE 73; RESP 16; TEMP 36.8; O2SAT 98
[2023-12-18] MEDS: DOCUSATE SODIUM 100 MG CAPSULE PO (08:39)
[2023-12-18] MEDS: MULTIVIT/MIN/PREN/FOL AC/IRON TABLET 1 TAB PO (08:40)
--- NOTE | 2023-12-18 13:01 | P.DS_ITS ---
DS: Admitting Diagnosis Discharge Date 12/18/23 Admitting Diagnosis labor DS: Discharge Diagnosis Discharge Diagnosis (1) (spontaneous vaginal delivery): Code(s): O80 - Encounter for full-term uncomplicated delivery Status: Acute OB - DS: Summary OB Procedures : None OB Procedures Intrapartum: Spontaneous Vag Delivery OB Procedures: : None Peripartum Data Laceration Description: Perineal - 2nd Degree Episiotomy description: None Time Spent with Patient Time attestation: Total time spent providing and/or coordinating discharge services: Discharge Plan Discharge Attending physician on discharge: Stephen Regan Discharging Clinician: Stephen Regan Patient Disposition: Home, Self-Care Activity: may shower and pelvic rest Diet: as tolerated Patient Instructions: Antibiotic Form Stand Alone Forms: General Discharge Information Follow-up/Referrals: Martinez Thomason MD [Physician] - 6 Weeks Discharge Medications: New docusate sodium 100 mg Capsule 100 mg PO BID PRN (Reason: Constipation) Qty: 60 0RF ibuprofen 600 mg Tablet 600 mg PO Q6H PRN (Reason: Cramping) Qty: 30 0RF Continued Classic 28 mg iron- 800 mcg Tablet 1 tablet PO DAILY ferrous sulfate 325 mg (65 mg iron) Tablet 325 mg PO DAILY Date of admission: 12/16/23 04:52 Primary Care Provider: PHYSICIAN,SOLID [employer]OPELLANT PROCESSOR Admitting Provider: Martinez Thomason Attending physician on admission: Martinez Thomason Condition: Stable
[2023-12-21 11:25] VITALS: BP 115/69; PULSE 66; RESP 18; TEMP 36.9; O2SAT 100
== END 2023-12-18 14:35 | disposition home or self-care (01) | DRG 560 ==
LOC: ANHOB2 12-18 13:28 → ANHLDR 12-21 09:06 → ANHOB2 12-21 09:06
PROVIDERS: Admitting Provider Obstetrics & Gynecology; Visit Provider Obstetrics & Gynecology
DX: O69.81X0 Labor and delivery complicated by cord around neck, without compression, not applicable or unspecified (principal); O70.1 Second degree perineal laceration during delivery; Z3A.37 37 weeks gestation of pregnancy; Z37.0 Single live birth
CPT/HCPCS: 36415; 85014; 85018; 85025; 86592; 86703; 86850; 86900; 86901; A9270; G0432; J2590; J2795; J3010; J7120